=== PATIENT | male | born 1935 | race Caucasian/White ===

== ENCOUNTER → 2016-08-10 14:22 | Outpatient (CLI) | payer MEDICARE ==
[2012-12-08 13:17] VITALS: BMI 28.5
[~2016-08-10 14:22] MED LIST: ASPIRIN 81 MG E81 MG PO; FISH OIL 1,0001 CA1 PO; LIPITOR40 MG PO; NORVASC2.5 MG PO; PRILOSEC20 MG PO; ZESTRIL40 MG PO
== END | disposition home or self-care (01) ==
LOC: D.MRI 14:22
DX: M19.012 Primary osteoarthritis, left shoulder (principal)

== ENCOUNTER → 2016-10-11 07:43 | Outpatient (CLI) | payer MEDICARE ==
[2012-12-08 13:17] VITALS: BMI 28.5
== END | disposition home or self-care (01) ==
LOC: D.MRI 07:43
DX: M75.122 Complete rotator cuff tear or rupture of left shoulder, not specified as traumatic (principal)

== ENCOUNTER 2019-10-22 06:51 | Outpatient (CLI) | payer MEDICARE ==
[~2019-10-22] VITALS: Ht 175.3 cm; Wt 85.5 kg
--- NOTE | ~2019-10-22 | HEMODYNAMI ---
PATIENT:DELMA KIMBROUGH MEDICAL RECORD: [id number] : 37 LOCATION:[facility] ADMISSION DATE: 10/22/19 Generatedon:10/22/201910:44 Patient name: DELMA KIMBROUGH Patient #: [id number] SSN: [id number] : 1935 Date of study: 10/22/2019 Page: Of Hemodynamic Procedure Report Patient Data Patient Demographics Procedure consent was obtained First Name: DELMA Gender: Male Last Name: LUIS E : 1935 Middle Initial: RAY Age: 84 year(s) Patient #: [id number] Race: Unknown SSN: [id number] Additional ID: [id number] Contact details Address: [address] [place] [address] ROAD State: [place] City: [place] Zip code: [address] Past Medical History Allergies Allergen Reaction Date Comments Reported Other allergy 10/22/2019 [place] Admission Admission Data Admission Date: 10/22/2019 Admission Time: 6:51 Arrival Date: 10/22/2019 Arrival Time: 0:00 Admit Source: Other Insurance Payor: Medicare HIC #: [id number] Height (in.): 70 BSA: 2.1 (m2) Height (cm.): 177.8 BMI: 28.98 (kg/m2) Weight (lbs.): 202 Weight (kg.): 91.63 Lab Results Lab Result Date: 10/22/2019 Lab Result Time: 0:00 Biochemistry Name Units Result Min Max BUN mg/dl 11 --(-*--)-- 7 18 Creatinine mg/dl 1.2 --(---*)-- 0.6 1.3 CBC Name Units Result Min Max Hemoglobin g/dl 12.9 -*(----)-- 13.5 17.5 Procedure Procedure Types Cath Procedure Diagnostic Procedure LHC LHC w/Coronaries w/Grafts Sedation Charges Moderate Sedation up to 30 minutes Procedure Description Procedure Date Procedure Date: 10/22/2019 Procedure Start Time: 10:08 Procedure End Time: 10:43 Procedure Staff Name Function Enzo Harris MD Performing Physician Apolonia Jones RT Monitor Sis Guevara RT Scrub Su Gooden RN Nurse Procedure Data Cath Procedure Fluoroscopy Diagnostic fluoroscopy Total fluoroscopy Time: time: 10.2 min 10.2 min Diagnostic fluoroscopy Total fluoroscopy dose: dose: 1222 mGy 1222 mGy Contrast Material Contrast Material Type Amount (ml) Isovue 370 122 Entry Location Entry Primary Successful Side Size Upsize Upsize Entry Closure Succes sful Closure Location (Fr) 1 (Fr) 2 (Fr) Remarks Device Remarks Femoral Right 5 Fr 5 Fr unable Exoseal artery to aspirate Estimated blood loss: 10 ml Diagnostic catheters Device Type Used For End Catheter Placement DIAGNOSTIC JL 4.0 5Fr catheter ([id number]) DIAGNOSTIC JL 3.5 5Fr Procedure catheter ([id number]) DIAGNOSTIC JL 5 5Fr Procedure catheter ([id number]) DIAGNOSTIC AR MOD 5Fr Procedure Catheter (131654C) DIAGNOSTIC AL1 5Fr Procedure catheter ([id number]) DIAGNOSTIC AL2 5Fr Procedure catheter (583625R) DIAGNOSTIC Pigtail 5Fr Ventriculography catheter ([id number]) Procedure Complications No complications Procedure Medications Medication Administration Route Dosage 0.9% NaCl I.V. 100 ml/hr Oxygen etCO2 Nasal cannula 2 l/min Lidocaine 2% added to field 20 Heparin Flush Bag added to field 2 bags (1000units/500ml NS) Versed I.V. 2 mg Fentanyl I.V. 50 mcg Versed I.V. 2 mg Fentanyl I.V. 50 mcg Hemodynamics Rest BSA: 2.1 (m2) HGB: 12.9 (g/dl) O2 Consumption: Estimated: 255.19 (ml/min) O2 Con sumption indexed: Estimated:121.52 (ml/min/m) Heart Rate: 90 (bpm) Pressure Samples Time Site Value (mmHg) Purpose Heart Use Rate(bpm) 10:35 LV 116/-1,13 Snapshot 91 10:35 LV 113/-5,11 Snapshot 92 Gradients Valve Time Site Site Mean SEP/DFP Peak To Heart Use 1 2 (mmHg) (sec/min) Peak Rate (mmHg) (bpm) Aortic 10:36 LV AO 92 Snapshots Pre Cath Intra NCS Post Cath Vital Signs Time Heart Resp SPO2 etCO2 NIBP (mmHg) Rhythm Pain Sedation Rate (ipm) (%) (mmHg) Status Level (bpm) 9:30:12 96 15 96 26.1 125/77(106) NSR 0 (11) 10(A) , No pain 9:34:25 79 27 96 26.1 120/71(89) NSR 0 (11) 10(A) , No pain 9:38:39 94 24 96 27.6 119/69(96) NSR 0 (11) 10(A) , No pain 9:42:49 93 23 96 2.9 99/72(94) NSR 0 (11) 10(A) , No pain 9:46:53 92 22 96 26.9 108/70(83) NSR 0 (11) 10(A) , No pain 9:50:59 92 33 97 22.4 113/74(91) NSR 0 (11) 10(A) , No pain 9:55:09 90 23 97 14.9 117/70(85) NSR 0 (11) 10(A) , No pain 9:59:21 87 27 98 19.4 117/66(93) NSR 0 (11) 10(A) , No pain 10:03:33 89 20 97 31.3 117/71(97) NSR 0 (11) 10(A) , No pain 10:07:45 89 21 96 16.4 110/74(84) NSR 0 (11) 10(A) , No pain 10:11:54 90 26 97 26.1 116/63(95) NSR 0 (11) 10(A) , No pain 10:16:06 89 24 97 22.4 104/68(86) NSR 0 (11) 9(A) , No pain 10:20:16 89 22 97 15.6 102/65(81) NSR 0 (11) 9(A) , No pain 10:24:24 88 20 97 30.7 110/67(92) NSR 0 (11) 9(A) , No pain 10:28:34 89 20 97 26.1 109/62(91) NSR 0 (11) 9(A) , No pain 10:33:33 91 19 96 28.4 Measuring NSR 0 (11) 9(A) , No pain 10:33:35 91 19 96 24.7 104/69(94) NSR 0 (11) 9(A) , No pain 10:37:45 88 41 97 23.2 114/66(94) NSR 0 (11) 10(A) , No pain 10:41:49 88 27 97 23.1 109/87(103) NSR 0 (11) 10(A) , No pain Medications Time Medication Route Dose Verified Delivered Reason Notes Eff ectiveness by by 9:29:55 0.9% NaCl I.V. 100 Enzo Su used for ml/hr Steven Gooden supervisor paint roller covers 9:30:01 Oxygen etCO2 2 Enzo Su used for Nasal l/min Steven Gooden procedure cannula RN 9:30:06 Lidocaine 2% added 20ml Enzo Enzo for local to vial Steven Harris MD anesthetic field 9:30:10 Heparin Flush added 2 Enzo Enzo used for Bag to bags Steven Harris MD procedure (1000units/500ml field NS) 10:05:21 Versed I.V. 2 mg Enzo Su for Steven Gooden sedation RN 10:05:29 Fentanyl I.V. 50 Enzo Su for mcg Steven Gooden sedation RN 10:11:42 Versed I.V. 2 mg Enzo Su for Steven Gooden sedation RN 10:11:50 Fentanyl I.V. 50 Enzo Su for mcg Steven Gooden sedation substance abuse therapist Log Time Note 9:29:10 Vital chart was started 9:29:19 Diagnostic Cath Status : Elective 9:29:55 0.9% NaCl 100 ml/hr I.V. was administered by Su Gooden RN; used for procedure; Verbal order read back and verified. 9:30:01 Oxygen 2 l/min etCO2 Nasal cannula was administered by Su Gooden RN; used for procedure; Verbal order read back and verified. 9:30:06 Lidocaine 2% 20ml vial added to field was administered by Enzo Harris MD; for local anesthetic; Verbal order read back and verified. 9:30:10 Heparin Flush Bag (1000units/500ml NS) 2 bags added to field was administered by Enzo Harris MD; used for procedure; Verbal order read back and verified. 9:31:37 Arrival Date: 10/22/2019 12:00:00 AM 9:32:04 Admit Source: Other 9:32:08 Insurance Payor : Medicare 9:32:41 Patient Height : 70 inches 9:32:48 Patient Weight : 202 lbs 9:46:51 Lab Result : BUN 11 mg/dl 9:46:51 Lab Result : Hemoglobin 12.9 g/dl 9:46:51 Lab Result : Creatinine 1.2 mg/dl 9:47:13 Procedure Status Elective Heart Cath (OP). 9:47:22 Sis Guevara RT(R) (CV) sent for patient. Start room use. 9:47:33 Time tracking: Regular hours (M-F 7:00 - 5:00) 9:47:38 Plan of Care:Hemodynamics will remain stable., Cardiac rhythm will remain stable., Comfort level will be maintained., Respiratory function will remain adequate., Patient/ family verbilizes understanding of procedure., Procedure tolerated without complication., Recovers from procedure without complications.. 9:47:44 Patient received from Pre/Post Procedure Room to CCL 1 Alert and oriented. Tansferred to table in Supine position. 9:47:51 Signed procedure consent form obtained from patient. 9:47:53 Warm blankets applied, and michelle hugger turned on for patient comfort. 9:47:54 Correct patient and procedure confirmed by team. 9:47:55 ECG and BP/O2 sat monitors applied to patient. 9:47:56 Baseline sample Acquired. 9:48:06 Baseline sample Acquired. 9:48:10 Full Disclosure recording started 9:48:31 H&P Date Dictated: 10/07/2019 Within 30 days and on chart., H&P Addendum completed by physician on day of procedure. (MUST COMPLETE FOR ALL OUTPATIENTS). 9:48:33 Pre-procedure instructions explained to patient. 9:48:35 Family in waiting room. 9:48:36 Patient NPO since Midnight. 9:48:52 Patient allergic to Other allergynorco 9:48:54 Is the patient allergic to Iodine/contrast media? No. 9:48:56 Was the patient premedicated? Yes 9:49:02 Is patient on blood thinner?No 9:49:03 Patient diabetic? No. 9:49:11 Snore? No 9:49:13 Sleep apnea? No 9:49:22 Dentures? No ? 9:49:25 Patient pain scale 0/10 ?. 9:49:35 IV patent on arrival in left forearm with 0.9% NaCl at [facility]. 9:49:41 Lab results completed and on chart. 9:50:03 Right groin area was prepped with chlora-prep and draped in sterile fashion 9:50:05 Alarms reviewed by RJanel N. 9:50:09 Sharps counted by scrub and verified by R.N. 9:50:13 Physician paged 10:02:05 Zero performed for pressure channel P1 10:04:34 Physician arrived 10:04:34 --------ALL STOP TIME OUT------ 10:04:35 Final Timeout: patient, procedure, and site verified with staff and physician. All members of the team are in agreement. 10:04:47 Right groin site verified by team. 10:04:51 Fire Safety Assessment: A--An alcohol-based skin anteseptic being used preoperatively., C--Open oxygen or nitrous oxide is being used., D--An ESU, laser, or fiber-optic light is being used. 10:05:01 Physical assessment completed. ASA score P 2 - A patient with mild systemic disease as per Enzo Harris MD. 10:05:04 2) 60-89 Mildly reduced kidney function, and other findings (as for stage 1) point to kidney disease. 10:05:10 Maximum allowable contrast dose (3.7 X eGFR X 0.75)169 ml. 10:05:15 Sedation plan: IV Moderate Sedation Medication:Versed, Fentanyl 10:05:19 Use device set Femoral Dx 10:05:21 Versed 2 mg I.V. was administered by Su Gooden RN; for sedation; Verbal order read back and verified. 10:05:29 Fentanyl 50 mcg I.V. was administered by Su Gooden RN; for sedation; Verbal order read back and verified. 10:05:55 ACIST Syringe (01573) opened to sterile field. 10:05:56 Bag Decanter (2002) opened to sterile field. 10:05:57 Medline Cath Pack ([id number]) opened to sterile field. 10:05:58 ACIST Hand Control (19494) opened to sterile field. 10:05:59 ACIST Manifold (63890) opened to sterile field. 10:06:01 Tegaderm 4 x 4 (1626W) opened to sterile field. 10:06:05 SHEATH 5FR [place] (FTA058) opened to sterile field. 10:06:06 EMERALD Guide Wire (632-976) opened to sterile field. 10:08:18 Procedure started. 10:08:33 Local anesthetic to right femoral artery with Lidocaine 2% by Enzo Harris MD.INITIAL ACCESS ONLY 10:08:54 A 5 Fr sheath was inserted into the Right Femoral arteryunable to aspirate 10:09:11 J wire advanced. 10:11:42 Versed 2 mg I.V. was administered by Su Gooden RN; for sedation; Verbal order read back and verified. 10:11:50 Fentanyl 50 mcg I.V. was administered by Su Gooden RN; for sedation; Verbal order read back and verified. 10:12:34 A DIAGNOSTIC JL 4.0 5Fr catheter ([id number]) was advanced over the wire and used for . 10:17:25 unable to cannulate 10:17:46 A DIAGNOSTIC JL 3.5 5Fr catheter (326484R) was advanced over the wire and used for Procedure. 10:20:24 unable to cannulate 10:20:35 A DIAGNOSTIC JL 5 5Fr catheter (587613R) was advanced over the wire and used for Procedure. 10:21:30 unable to cannulate 10:23:20 A DIAGNOSTIC AR MOD 5Fr Catheter (108001V) was advanced over the wire and used for Procedure. 10:23:27 RCA angiography performed. 10:23:44 SVG to RCA angiography performed. 10:24:50 SVG to LAD angiography performed. 10:26:28 A DIAGNOSTIC AL1 5Fr catheter (906846X) was advanced over the wire and used for Procedure. 10:29:26 unable to cannulate 10:29:41 A DIAGNOSTIC AL2 5Fr catheter (347826C) was advanced over the wire and used for Procedure. 10:30:51 LCA angiography performed. 10:34:21 A DIAGNOSTIC Pigtail 5Fr catheter (512680O) was advanced over the wire and used for Ventriculography. 10:34:40 LV gram done using AGUILAR 10:35:51 EF : 40 % 10:38:05 sheath unable to aspirate 10:38:09 SHEATH 5FR [place] (MEH182) opened to sterile field. 10:38:29 Sheath upsized to a 5 Fr. 10:39:24 Catheter removed. 10:39:42 Sheath removed intact; hemostasis achieved with Exoseal to the Right Femoral artery. 10:39:47 EXOSEAL 5Fr (EX500) opened to sterile field. 10:40:04 Procedure ended.(Physican Out) 10:40:17 Fluoroscopy time 10.20 minutes. 10:40:32 Flurop Dose total: 1222 10:40:32 Fluoroscopy dose: 1222 mGy 10:40:37 Dose Area Product 87455 mGy/cm. 10:40:40 Contrast amount:Isovue 370 122ml. 10:40:43 Maximum allowable dose exceeded? No. 10:40:44 Sharps counted by scrub and verified by R.N. 10:40:47 Insertion/operative site no bleeding no hematoma. 10:40:51 Post-op/insertion site Right Femoral artery dressed using a 4 x 4 and Tegaderm. 10:40:54 Post right femoral artery:stable 10:40:58 Post Procedure Pulses reassessed and unchanged 10:41:03 Post-procedure physical assessment completed. ASA score P 2 - A patient with mild systemic disease as per Enzo Harris MD. 10:41:07 Post procedure rhythm: unchanged. 10:41:10 Estimated blood loss: 10 ml 10:41:12 Post procedure instruction explained to patient.Patient verbalizes understanding. 10:41:31 Procedure type changed to Cath procedure, Diagnostic procedure, LHC, LHC w/Coronaries w/Grafts, Sedation Charges, Moderate Sedation up to 30 minutes 10:41:57 Procedure and supply charges have been captured, reviewed, submitted and are correct. 10:42:58 Procedure Complication : No complications 10:43:00 Vital chart was stopped 10:43:03 [facility] Findings: mild to moderate CAD (<70%) 10:43:08 Operative report dictated upon procedure completion. 10:43:08 See physician's report for complete and final results. 10:43:10 Report given to Pre/Post Procedure Room. 10:43:13 Patient transfered to Pre/Post Procedure Room with Stretcher. 10:43:15 Procedure ended. 10:43:15 Full Disclosure recording stopped 10:43:24 End room use (Document Last) 10:43:40 End room use (Document Last) 10:43:59 End room use (Document Last) Device Usage Item Name Manufacture Quantity Catalog Hospital Part Current Minimal L ot# / Number Charge Number Stock Stock Serial# Code ACIST Acist 1 63421 982855 178844 251333 20 Syringe Medical (78280) Systems Inc Bag Microtek 1 903827 92241 945430 5 Decanter Medical Inc. () Medline Medline 1 [id number] 392696 27617 809808 5 Cath Pack ([id number]) ACIST Hand Acist 1 28626 377065 298757 576967 5 Control Medical (36179) Systems Inc ACIST Acist 1 85877 070959 865992 324869 5 Manifold Medical (12339) Systems Inc Tegaderm 4 3M 1 1626W 562730 750450 204076 5 x 4 (1626W) SHEATH 5FR Terumo 2 QVM185 142162 728410 380850 5 [place] (PAA964) EMERALD Cardinal 1 502-455 725475 017693 064151 5 Guide Wire Health (502-455) DIAGNOSTIC Cardinal 1 881939X 763185 457633 558299 10 JL 4.0 5Fr Health catheter (200415C) DIAGNOSTIC Cardinal 1 493532J 687953 577688 364545 5 JL 3.5 5Fr Health catheter (384365I) DIAGNOSTIC Cardinal 1 843424P 260573 004005 290591 5 JL 5 5Fr Health catheter (082925U) DIAGNOSTIC Cardinal 1 864429O 689547 641500 066174 15 AR MOD 5Fr Health Catheter (348954T) DIAGNOSTIC Cardinal 1 [id number] 027944 995727 757135 15 AL1 5Fr Health catheter (796358J) DIAGNOSTIC Cardinal 1 392727P 422667 699475 930622 15 AL2 5Fr Health catheter (993697K) DIAGNOSTIC Cardinal 1 877784R 412433 572583 137151 5 Pigtail 5Fr Health catheter (395444L) EXOSEAL 5Fr Cardinal 1 EX500 173961 881199 555219 10 (EX500) Health Signature Audit [place] Stage Time Signature Unsigned Intra-Procedure 10/22/2019 Apolonia Jones 10:43:40 AM RT(R) Intra-Procedure 10/22/2019 Su Gooden 10:43:59 AM RN Intra-Procedure 10/22/2019 Enzo Harris MD 10:44:21 AM [facility] [address] [place] [id number]
[2019-10-22] MEDS ORDERED: BAYER CHEWABLE81 MG PO (07:46)
[2019-10-22] MEDS ORDERED: CARDURA1 MG PO (07:48)
[2019-10-22] MEDS ORDERED: MULTI-DAY VITAM1 TAB PO (07:49)
[2019-10-22] MEDS ORDERED: NIASPAN500 MG PO (07:49)
[2019-10-22] MEDS ORDERED: CO Q-10100 MG PO (07:49)
[2019-10-22 08:02] VITALS: BP 141/78; Ht 175.3 cm; Wt 85.5 kg
[2019-10-22 08:57] LABS: BASOPHILS 0.3 % (0-2); EOSINOPHILS 1.4 % (0-7); HEMATOCRIT 39.5 % (42.0-54.0); HEMOGLOBIN 12.9 g/dL (13.5-17.5); IMMATURE GRANULOCYTES 0.6 % (0-5); LYMPHOCYTES 10.9 % (15-50); MCH 31.1 pg (26.0-34.0); MCHC 32.7 g/dL (31.0-37.0); MCV 95.2 fL (80.0-100.0); MEAN PLATELET VOLUME 9.9 fL (7.4-10.4); MONOCYTES 13.1 % (2-11); NEUTROPHILS 73.7 % (40-80); PLATELET COUNT 292 10x3/uL (130-400); RBC 4.15 10x6/uL (4.20-6.10); RDW 14.6 % (11.5-14.5)
[2019-10-22 09:12] LABS: ANION GAP 13.8 mmol/L (8-16); CALCIUM 9.3 mg/dL (8.5-10.1); CARBON DIOXIDE 22.7 mmol/L (21.0-32.0); CHOL - HDL RATIO 3.9 ratio (2.3-4.9); CREATININE - SERUM 1.2 mg/dL (0.6-1.3); LDL-HDL RATIO 2.4 ratio (1.5-3.5); POTASSIUM - SERUM 3.5 mmol/L (3.5-5.1)
--- NOTE | 2019-10-22 10:50 | NUR ---
PT REC'D TO ROOM 6 VIA STRETCHER FROM [facility]. MONITORS ESTAB, AT BS. SEE EMBEDDED SYSTEMS DEVELOPER. ALARMS ON AND C/L IN REACH.
--- NOTE | 2019-10-22 11:05 | NUR ---
R GROIN SITE SOFT, NO S/S BLEEDING OR HEMATOMA. PULSES EASLILY PALP, BRISK CAP REFILL. VSS. AT BS. C/L IN REACH.
--- NOTE | 2019-10-22 11:35 | NUR ---
R GROIN SITE SOFT, NO S/S BLEEDING OR HEMATOMA. PULSES PALP. VSS. PT RESTING QUIETLY. ALARMS ON AND C/L IN REACH.
--- NOTE | 2019-10-22 11:50 | NUR ---
R GROIN SITE SOFT, NO S/S BLEEDING OR SWELLING, PULSES PALP. HOB GRADUALLY ELEVATED.. SANDWICH PROVIDED WITH ASSISTING PT. VSS. C/L IN REACH.
--- NOTE | 2019-10-22 12:15 | NUR ---
R GROIN SITE SOFT, NO S/S BLEEDING OR HEMATOMA. PULSES PALP. VSS. PT DENIES PAIN OR NEEDS.
--- NOTE | 2019-10-22 12:45 | NUR ---
R GROIN SITE SOFT, NO S/S BLEEDING OR HEMATOMA. PULSES PALP. PIV D/C'D INTACT, DSG APPLIED. PT ALLOWED UP TO GET DRESSED AND GO TO BR INDEPENDENTLY.
--- NOTE | 2019-10-22 12:55 | NUR ---
ALL DISCHARGE INSTRUCTIONS REVIEWED WITH PT AND HIS , INCLUDING MEDS, RESTRICTIONS AND F/U APPT. UNDERSTANDING VERBALIZED, NO QUESTIONS AT THIS TIME.
--- NOTE | 2019-10-22 13:10 | NUR ---
PT D/C'D TO PRIVATE VEHICLE WITH ALL PAPERWORK AND BELONGINGS.
== END 2019-10-22 13:10 | disposition home or self-care (01) ==
LOC: D.CATH 06:51
PROVIDERS: ATTEND Internal Medicine Cardiovascular Disease
DX: I25.110 Atherosclerotic heart disease of native coronary artery with unstable angina pectoris (principal); E78.5 Hyperlipidemia, unspecified; I10 Essential (primary) hypertension; I25.2 Old myocardial infarction